=== PATIENT | female | born 1990 | race Caucasian/White ===

== ENCOUNTER 2018-11-19 03:37 | Emergency (ER) | payer SELFPAY ==
[~2018-11-19] VITALS: Ht 165.1 cm; Wt 109.1 kg
[2018-11-19 03:59] VITALS: TEMP 98.8
[2018-11-19 04:29] LABS: STREP SCREEN NEGATIVE
[2018-11-19 05:08] LABS: HEMOGLOBIN 12.4 g/dl (12.5-16.0); MEAN CELL VOLUME 86 fl (80.0-100.0); MEAN CORPUSCULAR HEMOGLOBIN 29 pg (27.0-31.0); MEAN CORPUSCULAR HGB CONC 34 g/dl (33.0-37.0); MEAN PLATELET VOLUME 9.2 fl (7.4-10.4); PLATELET COUNT 266 K/mm3 (130-400); REDCELL DISTRIBUTION WIDTH-CV 13.2 % (11.5-14.5)
[2018-11-19 05:21] LABS: MONOSCREEN NEGATIVE
[2018-11-19] MEDS ORDERED: CLEOCIN HCL300 MG PO (05:35)
[2018-11-19 05:46] LABS: ANISOCYTOSIS 1+; BAND 21 % (0-10); BASOPHIL 1 % (0-2); EOSINOPHIL 3 % (0-4); NEUTROPHILS 53 % (42.0-75.2); POIKILOCYTOSIS 1+
[2018-11-19 05:47] LABS: LYMPHOCYTE 13 % (20.0-51.0)
[2018-11-19 06:00] VITALS: BP 121/71; PULSE 89
== END 2018-11-19 06:00 | disposition home or self-care (01) ==
LOC: COL.ER 03:37
PROVIDERS: Emergency Medicine
DX: J03.90 Acute tonsillitis, unspecified (principal); F17.210 Nicotine dependence, cigarettes, uncomplicated
CPT/HCPCS: J1100

== ENCOUNTER 2021-01-02 00:40 | Emergency (ER) | payer SELFPAY ==
[~2021-01-02] VITALS: Ht 165.1 cm; Wt 118.2 kg
[~2021-01-02 00:40] MED LIST: CLEOCIN HCL300 MG PO
[2021-01-02] MEDS ORDERED: BACTRIM DS 8001 TAB PO (01:55)
[2021-01-02 02:28] VITALS: BP 165/94; PULSE 100; TEMP 98.8
== END 2021-01-02 02:28 | disposition home or self-care (01) ==
LOC: COL.ER 00:40
DX: L05.01 Pilonidal cyst with abscess (principal); F17.200 Nicotine dependence, unspecified, uncomplicated

== ENCOUNTER → 2021-01-03 | Outpatient (CLI) | payer SELFPAY ==
[~2021-01-03] MED LIST changes: +BACTRIM DS 8001 TAB PO
== END ==
LOC: COL.ER 23:23
DX: Z48.817 Encounter for surgical aftercare following surgery on the skin and subcutaneous tissue (principal)

== ENCOUNTER 2021-02-19 01:42 | Emergency (ER) | payer SELFPAY ==
[~2021-02-19] VITALS: Ht 172.7 cm; Wt 81.8 kg
[2021-02-19 01:50] VITALS: TEMP 97.2
[2021-02-19 02:37] LABS: BASO # 0.1 K/mm3 (0.0-0.2); BASO % 0.6 % (0.0-2.0); EOS # 0.2 K/mm3 (0.0-0.7); EOS % 1.8 % (0.0-4.0); GRAN # 6.1 K/mm3 (1.4-6.5); GRAN % 50.7 % (42.2-75.2); HEMATOCRIT 39.8 % (37.0-47.0); HEMOGLOBIN 13.6 g/dl (12.5-16.0); LYMPH # 4.8 K/mm3 (1.2-3.4); LYMPH % 40.6 % (20.0-51.0); MEAN CELL VOLUME 86 fl (80.0-100.0); MEAN CORPUSCULAR HEMOGLOBIN 30 pg (27-31); MEAN CORPUSCULAR HGB CONC 34 g/dl (33.0-37.0); MEAN PLATELET VOLUME 9.1 fl (7.4-10.4); MONO # 0.7 K/mm3 (0.1-0.6); PLATELET COUNT 309 K/mm3 (130-400); RED BLOOD COUNT 4.61 M/mm3 (4.10-5.30); REDCELL DISTRIBUTION WIDTH-CV 13.2 % (11.5-14.5)
[2021-02-19 02:55] LABS: ALBUMIN 4.1 gm/dL (3.5-5.0); BILIRUBIN,TOTAL 0.3 mg/dL (0.2-1.2); CALCIUM 9.5 mg/dL (8.4-10.2); CREATININE, serum 0.78 mg/dL (0.57-1.11); POTASSIUM 4.1 mmol/L (3.5-4.5); TOTAL PROTEIN 7.6 gm/dL (6.2-8.1)
[2021-02-19 05:19] VITALS: BP 144/78; PULSE 76
== END 2021-02-19 05:19 | disposition home or self-care (01) ==
LOC: COL.ER 01:42
PROVIDERS: Personal Emergency Response Attendant
DX: K86.2 Cyst of pancreas (principal); F17.210 Nicotine dependence, cigarettes, uncomplicated; Z87.42 Personal history of other diseases of the female genital tract
CPT/HCPCS: Q9967

== ENCOUNTER 2023-02-26 00:05 | Emergency (ER) | payer SELFPAY ==
[~2023-02-26] VITALS: Ht 165.1 cm; Wt 118.2 kg
[2023-02-26 00:15] VITALS: TEMP 98.2
[2023-02-26] MEDS ORDERED: Morphine 4 MG/ML VIAL IV ONE ×2 (00:30→02:00)
[2023-02-26] MEDS ORDERED: NS 1,000 ML IV ONE (00:30)
[2023-02-26] MEDS ORDERED: Ondansetron 4 MG/2 ML VIAL IV ONE (00:30)
[2023-02-26 01:00] LABS: BASO % 0.4 % (0.0-2.0); COLLECTION METHOD CLEAN CATCH; EOS # 0.1 K/mm3 (0.0-0.7); GRAN # 6.7 K/mm3 (1.4-6.5); GRAN % 64.5 % (42.2-75.2); HEMATOCRIT 41.2 % (37.0-47.0); LYMPH # 2.6 K/mm3 (1.2-3.4); LYMPH % 24.7 % (20.0-51.0); MEAN CELL VOLUME 88 fl (80.0-100.0); MEAN CORPUSCULAR HEMOGLOBIN 30 pg (27-31); MEAN CORPUSCULAR HGB CONC 34 g/dl (33.0-37.0); MEAN PLATELET VOLUME 9.2 fl (7.4-10.4); MONO # 0.9 K/mm3 (0.1-0.6); MONO % 9.1 % (1.7-9.3); PLATELET COUNT 303 K/mm3 (130-400); RED BLOOD COUNT 4.71 M/mm3 (4.10-5.30); REDCELL DISTRIBUTION WIDTH-CV 13.2 % (11.5-14.5)
[2023-02-26 01:15] LABS: ALBUMIN 3.8 gm/dL (3.5-5.0); BILIRUBIN,TOTAL 0.2 mg/dL (0.2-1.2); C-REACTIVE PROTEIN 2.63 mg/dL (0.00-0.50); CALCIUM 9.4 mg/dL (8.4-10.2); CREATININE, serum 0.75 mg/dL (0.57-1.11); POTASSIUM 3.3 mmol/L (3.5-4.5); TOTAL PROTEIN 7.5 gm/dL (6.2-8.1)
[2023-02-26 01:44] LABS: URINE APPEARANCE Clear (CLEAR/HAZY); URINE BLOOD 2+ (NEGATIVE); URINE COLOR Yellow (YELLOW); URINE GLUCOSE Negative (NEGATIVE); URINE KETONE Negative (NEGATIVE); URINE NITRATE Negative (NEGATIVE); URINE PROTEIN(semi-quant) Negative (NEGATIVE); URINE UROBILINOGEN 0.2 E.U/dL (0.2-1.0)
[2023-02-26 01:45] LABS: MUCOUS Present (NOT PRESENT); URINE BACTERIA Occasional /hpf (NONE SEEN); URINE RBC 0-2 /hpf (0-2)
[2023-02-26] MEDS ORDERED: Ketorolac 30 MG/ML VIAL IV ONE (02:00)
[2023-02-26] MEDS ORDERED: Iohexol 300 - 100 ML VIAL IV ONE (02:07)
[2023-02-26] MEDS ORDERED: NS 60 ML IV ONE (02:08)
[2023-02-26 04:07] VITALS: BP 131/84; PULSE 78
[2023-02-26] MEDS ORDERED: ZOFRAN 4MG T4 MG/TAB PO (04:25)
[2023-02-26] MEDS ORDERED: TYLENOL W/COD1 UDTAB PO (04:26)
--- NOTE | 2023-02-26 13:12 | NUR ---
[employer] received consult for patient who needs to be set up with primary care. Patient is self pay. SW contacted number on file for patient and it was disconnected. SW contacted phone number listed for patient's mother, Toshia and left a general message requesting a call back.
== END 2023-02-26 04:41 | disposition home or self-care (01) ==
LOC: COL.ER 00:05
PROVIDERS: Nurse Practitioner
DX: K86.89 Other specified diseases of pancreas (principal); F17.210 Nicotine dependence, cigarettes, uncomplicated
CPT/HCPCS: J1885; J2270; J2405; J7030; Q9967

== ENCOUNTER 2023-10-22 03:09 | Emergency (ER) | payer SELFPAY ==
[~2023-10-22] VITALS: Ht 165.1 cm; Wt 118.2 kg
[~2023-10-22 03:09] MED LIST changes: +TYLENOL W/COD1 UDTAB PO; +ZOFRAN 4MG T4 MG/TAB PO
[2023-10-22 03:20] VITALS: TEMP 98.7
[2023-10-22] MEDS ORDERED: Ketorolac 15 MG/ML VIAL IV ONE (03:30)
[2023-10-22 03:43] LABS: COLLECTION METHOD CLEAN CATCH
[2023-10-22 03:46] LABS: BASO # 0.1 K/mm3 (0.0-0.2); BASO % 0.7 % (0.0-2.0); EOS # 0.2 K/mm3 (0.0-0.7); EOS % 1.8 % (0.0-4.0); GRAN # 6.1 K/mm3 (1.4-6.5); GRAN % 54.7 % (42.2-75.2); LYMPH % 35.5 % (20.0-51.0); MEAN CELL VOLUME 87 fl (80.0-100.0); MEAN CORPUSCULAR HEMOGLOBIN 30 pg (27-31); MEAN CORPUSCULAR HGB CONC 34 g/dl (33.0-37.0); MEAN PLATELET VOLUME 9.4 fl (7.4-10.4); MONO # 0.8 K/mm3 (0.1-0.6); MONO % 6.9 % (1.7-9.3); PLATELET COUNT 287 K/mm3 (130-400); RED BLOOD COUNT 4.74 M/mm3 (4.10-5.30); REDCELL DISTRIBUTION WIDTH-CV 13.8 % (11.5-14.5)
[2023-10-22 03:53] LABS: PH 5.5 (5.0-8.5); URINE APPEARANCE CLOUDY (CLEAR/HAZY); URINE BLOOD NEGATIVE (NEGATIVE); URINE COLOR Dark Yellow (YELLOW); URINE GLUCOSE NEGATIVE (NEGATIVE); URINE KETONE TRACE (NEGATIVE); URINE NITRATE NEGATIVE (NEGATIVE); URINE PROTEIN(semi-quant) 1+ (NEGATIVE)
[2023-10-22] MEDS ORDERED: Iohexol 300 - 100 ML VIAL IV ONE (03:56)
[2023-10-22] MEDS ORDERED: NS 50 ML IV SCH (03:56)
[2023-10-22 04:04] LABS: ALANINE AMINOTRANSFERASE 15 U/L (0-55); ALKALINE PHOSPHATASE 53 U/L (40-150); ANION GAP 13 mmol/L (7-16); AST,SGOT 13 U/L (5-34); BILIRUBIN,TOTAL 0.4 mg/dL (0.2-1.2); BLOOD UREA NITROGEN 10 mg/dL (7-19); CALCIUM 9.6 mg/dL (8.4-10.2); CHLORIDE 108 mEq/L (98-107); CREATININE, serum 0.81 mg/dL (0.57-1.11); GLUCOSE 104 mg/dL (70-99); LIPASE 11 U/L (8-78); MAGNESIUM 1.8 mg/dL (1.6-2.6); POTASSIUM 3.4 mEq/L (3.5-4.5); SODIUM 142 mEq/L (136-145); TOTAL PROTEIN 7.7 g/dl (6.2-8.1)
[2023-10-22 04:10] LABS: TROPONIN-I < 0.010 ng/mL (0.00-0.033)
[2023-10-22] MEDS ORDERED: Home HYDROcodone/Acetaminophen 5/325 MG #4 TABS/PACK PO ONE (04:30)
[2023-10-22 04:36] VITALS: BP 144/98; PULSE 81
== END 2023-10-22 04:36 | disposition home or self-care (01) ==
LOC: COL.ER 03:09
PROVIDERS: Emergency Medicine
DX: K86.2 Cyst of pancreas (principal); F17.200 Nicotine dependence, unspecified, uncomplicated
CPT/HCPCS: J1885; Q9967